=== PATIENT | female | born 1975 | race Caucasian/White ===

== ENCOUNTER 2020-07-21 10:44 | Emergency (ER) | payer OTHER, SELFPAY ==
--- NOTE | ~2020-07-21 | CT_ITS ---
EXAMINATION: CT abdomen pelvis w con DATE: 07/21/2020 14:20 INDICATION: Abdominal pain. History of diverticulitis. TECHNIQUE: Computed tomography (CT) of the abdomen and pelvis was performed with 100 cc Omnipaque 350 intravenous contrast. Automated exposure control and iterative reconstruction technique were employe d. Exam dose: 417.10 mGy-cm total exam DLP. COMPARISON: 01/06/2018 CT abdomen pelvis examination: Radiographically uncomplicated sigmoid diverticu litis was reported FINDINGS: No consolidation at the lung bases. Left lower lobe calcified pulmonary granuloma. Normal heart size. No pericardial or pleural effusion. 1.5 cm splenic cyst. The liver, gallbladder, bile ducts, pancreas and pancreatic duct are unremarkable. No adrenal mass lesion. Status post left nephrectomy. No right renal mass lesion or urinary tract calculus or right-sided hydroureteronephrosis. The urinar y bladder, uterus and adnexal areas are unremarkable. There is mild free fluid in the dependent pelvi s. There is normal caliber of the abdominal aorta. No intraperitoneal or retroperitoneal or pelvic mass lesion or adenopathy or ascites. There is pericolic inflammation and thickening of the wall of the colon at the proximal sigmoid area, consistent with sigmoid diverticulitis, without evidence of abscess formation. Small fat-containing umbilical hernia. Included skeletal structures are unremarkable. IMPRESSION: Proximal sigmoid diverticulitis, without evidence of abscess Mild free fluid collection in the dependent pelvis Status post left nephrectomy Reviewed, dictated and finalized at [facility]. Reviewed, dictated and finalized at [facility].
[2020-07-21 11:46] VITALS: BP 143/99; PULSE 113; RESP 18; TEMP 36.8; O2SAT 100
[2020-07-21 12:00] LABS: Basophils Percent Auto 0.3 % (0.2-1.2); Eosinophils Percent Auto 0.1 % (0-4.4); Hematocrit 42.9 % (37.0-47.0); Hemoglobin 14.2 g/dL (12.0-15.0); Immature Granulocyte Absolute 0.05 K/mm3 (0.00-0.031); Immature Granulocyte Percent A 0.5 % (0-0.5); Lymphocytes Absolute Auto 1.47 K/mm3 (0.9-3.2); Lymphocytes Percent Auto 15.8 % (18.3-44.2); Mean Corpuscular HGB Conc 33.1 g/dl (32-36); Mean Corpuscular Hemoglobin 28.7 pg (26-34); Mean Corpuscular Volume 86.7 fl (80-100); Mean Platelet Volume 9.3 fl (7.4-10.4); Monocytes Absolute Auto 0.6 K/mm3 (0.1-0.6); Monocytes Percent Auto 6.6 % (2.6-8.5); Neutrophils Absolute Auto 7.1 K/mm3 (1.3-6.7); Neutrophils Percent Auto 76.7 % (45.5-73.1); Platelet Count Result 233 k/mm3 (150-375); Red Blood Count 4.95 M/mm3 (4.2-5.4); White Blood Count 9.3 K/mm3 (4.5-10.0)
[2020-07-21 12:11] LABS: Alanine Aminotransferase 18 U/L (4-35); Albumin Level 4.8 g/dL (3.5-5.1); Alkaline Phosphatase 75 U/L (38-126); Anion Gap 11 mmol/L (8-16); Aspartate Amino Transferase 26 U/L (14-36); Bilirubin,Total 0.5 mg/dL (0.2-1.3); Blood Urea Nitrogen 12 mg/dL (7-17); Calcium 9.9 mg/dL (8.4-10.2); Carbon Dioxide 28 mmol/L (22-30); Chloride 100 mmol/L (98-107); Estimated CRCL calculation 74 ml/min; Estimated Glomerular Filt Rate > 60; Glucose 99 mg/dL (65-105); Lipase 549 U/L (23-300); Potassium 4.6 mmol/L (3.4-5.0); Sodium 139 mmol/L (137-145)
[2020-07-21 12:22] LABS: Add Urine Microscopic? YES; Appearance Urine Clear (Clear); Bacteria Urine Trace /hpf; Bilirubin Urine Negative (Negative); Blood Urine Negative (Negative); Color Urine Colorless (Yellow); Glucose Urine UA Negative (Negative); Ketones Urine 1+ mg/dL (Negative); Leukocyte Esterase Ur Negative LEU/UL (Negative); Mucus Urine Rare /lpf; Nitrate Urine Negative (Negative); Protein Urine Negative (Negative); RBC Urine 0-2 /hpf (0-2); Specific Grav Ur 1.005 (1.001-1.035); Squamous Epithelial Cell Urine Occasional /hpf (Few); Urobilinogen Urine Negative mg/dL (<2.0); WBC Urine 0-3 /hpf
[2020-07-21 14:48] VITALS: BP 124/80; PULSE 93; RESP 15; O2SAT 100
--- NOTE | 2020-07-21 15:32 | ED.ABDPAIN ---
HPI - Abdominal Pain General Chief Complaint: Abdominal Pain <Alvin Torres PA-C - Last Filed: 07/21/20 15:51> Stated Complaint: lower abd pain <Alvin Torres PA-C - Last Filed: 07/21/20 15:51> Time Seen by Provider: 07/21/20 13:32 <Alvin Torres PA-C - Last Filed: 07/21/20 15:51> Source: patient <CHRIS Evans Last Filed: 07/21/20 15:51> Mode of arrival: ambulatory <CHRIS Evans Last Filed: 07/21/20 15:51> Limitations: no limitations <CHRIS Evans Last Filed: 07/21/20 15:51> History of Present Illness HPI narrative: Patient presents with chief complaint of lower abdominal discomfort that has been persistently worsening since yesterday. Patient states that she has a history of diverticulitis and feels that her symptoms are presenting the same way. She was unable to get into her primary care so she presented to the emergency department. Patient reports she has not had any fever, chills, vomiting, or urinary symptoms. She reports some mild nausea. She reports her stool has been pebble-like with some nonbloody mucus this morning. Patient reports she has had 2 episodes of diverticulitis in the past. Patient reports she drove herself to the emergency department. <Alvin Torres PA-C - Last Filed: 07/21/20 15:51> Related Data Home Medications: Home Medications Medication Instructions Recorded Confirmed ezetimibe [Zetia] 10 mg PO DAILY 09/13/19 06/02/20 cetirizine 10 mg tablet 10 mg PO DAILY 05/19/20 06/02/20 ascorbate calcium (vitamin C) 500 500 mg PO DAILY 06/02/20 06/02/20 mg tablet omega-3 fatty acids 1,000 mg 1,000 mg PO DAILY 06/02/20 06/02/20 capsule <CHRIS Evans Last Filed: 07/21/20 15:51> Allergies/Adverse Reactions: Allergies Allergy/AdvReac Type Severity Reaction Status Date / Time mold Allergy Unknown Unknown Verified 06/02/20 13:16 Grass Allergy Unknown Unknown Uncoded 06/02/20 13:16 trees Allergy Unknown Unknown Uncoded 06/02/20 13:16 <Alvin Torres PA-C - Last Filed: 07/21/20 15:51> Review of Systems Review of Systems: Narrative: CONSTITUTIONAL: Denies fever, chills, or sweats. EYES: Denies visual changes, redness, or discharge. ENT: Denies rhinorrhea, congestion, sore throat, or otalgia. CARDIOVASCULAR: Denies chest pain, palpitations, or edema. RESPIRATORY: Denies cough or dyspnea. GASTROINTESTINAL: Reports abdominal pain, nausea, denies vomiting or diarrhea. GENITOURINARY: Denies dysuria or hematuria. SKIN: Denies rash or itching. MUSCULOSKELETAL: Denies back pain, myalgia, or joint pain NEUROLOGIC: Denies headache, numbness, dizziness, or weakness. PSYCHIATRIC: Denies anxiety or depression. <Alvin Torres PA-C - Last Filed: 07/21/20 15:51> COUNT INCLUDES THE [facility] Social History Social History: Social History Smoking status: Former smoker (Quit 1997) Second hand tobacco smoke exposure: No Smoking end date: 10/15/97 Alcohol intake: current Substance use: never Substance use type: does not use Gender identity (if verbalized by the patient): Female <Alvin Torres PA-C - Last Filed: 07/21/20 15:51> Exam Narrative: Exam Narrative: GENERAL: Well-appearing, well-nourished. Patient not appear toxic or diaphoretic. Patient smiling and talking appropriately. HEAD: Normocephalic, atraumatic. EYES: PERRLA and EOMI. ENT: Nares clear, no rhinorrhea or epistaxis. Mucous membranes moist. Oropharynx without tonsillar hypertrophy exudate or other lesions. Bilateral TMs pearly torres nonbulging NECK: Supple. No adenopathy or masses. No vertebral tenderness or loss of ROM. CHEST: Clear to auscultation. No respiratory distress. No wheezes rales or rhonchi HEART: Regular rate and rhythm. Normal peripheral pulses. ABDOMEN: Soft, tender across lower abdomen under umbilicus, nondistended, normal active bowel sounds. No bruises noted. EXTREM
[2020-07-21 15:47] VITALS: BP 141/78; PULSE 93; RESP 14; O2SAT 97
[2020-07-21 16:12] VITALS: BP 132/81; PULSE 86; RESP 16; O2SAT 98
== END 2020-07-21 16:14 | disposition home or self-care (01) ==
PROVIDERS: Emergency Provider General Practice; PCP Family Medicine
DX: K57.30 Diverticulosis of large intestine without perforation or abscess without bleeding (principal); Z87.891 Personal history of nicotine dependence; Z90.5 Acquired absence of kidney
CPT/HCPCS: 36415; 74177; 80053; 81001; 81025; 83690; 85025; 96365; 99284; J0131; Q9967

== ENCOUNTER → 2021-03-05 08:59 | Outpatient (CLI) | payer OTHER, SELFPAY ==
--- NOTE | ~2021-03-05 | XR_ITS ---
EXAMINATION: XR chest 2V DATE: 03/05/2021 09:22 INDICATION: Mild intermittent asthma, uncomplicated TECHNIQUE: PA and lateral views of the chest are obtained. COMPARISON: 07/23/2017 FINDINGS: The lungs are free of acute opacities. There is no pleural effusion or pneumothorax. The ca rdiomediastinal silhouette is normal. The visualized bones and soft tissues are unremarkable. IMPRESSION: 1. No acute cardiopulmonary abnormality. Reviewed, dictated and finalized at [facility].
== END ==
PROVIDERS: Visit Provider Internal Medicine
DX: J45.20 Mild intermittent asthma, uncomplicated (principal)
CPT/HCPCS: 71046